=== PATIENT | female | born 1985 | race Caucasian/White ===

== ENCOUNTER 2020-02-28 17:39 | Outpatient (REF) | payer OTHER, SELFPAY | END 2020-02-28 17:40 | disposition home or self-care (01) | LOC: HO.LAB 17:39 | PROVIDERS: Visit Provider Internal Medicine | DX: Z20.828 Contact with and (suspected) exposure to other viral communicable diseases (principal) | CPT/HCPCS: C9803; U0003 ==

== ENCOUNTER 2022-06-09 09:24 | Emergency (ER) | payer OTHER, SELFPAY ==
[2022-06-09 09:25] VITALS: BP 126/68; PULSE 100; RESP 18; TEMP 36.8; O2SAT 100; BMI 34.7
--- OUTSIDE RECORDS SUMMARY | 2022-06-09 09:42 | XMS_ITS | Continuity of Care Document ---
Author Name Unknown Organization [facility] Infect[facility] Disease Address [address] [place] [address]- Care Team Providers Care Line Installer Repairer Name Role Phone Marco Crocker MD Primary Care Physician Encounter [facility] Date(s): 05/10/19 - 07/23/19 [facility] [address] [place] [address] [facility] Attending Physician: Javon Velasquez MD Admitting Physician: Javon Velasquez MD Referring Physician: Marco Crocker MD Allergies, Adverse Reactions, Alerts Substance Reaction Severity Status NKA Active Immunizations Given and Recorded Vaccine Date Status Refusal Reason influenza virus vaccine, inactivated 1 04/27/19 Gi yen tetanus/diphtheria/pertussis, acel(Tdap) 02/14/16 Given tetanus/diphtheria/pertussis, acel(Tdap) 2 09/05/10 Given 1Result Comment: patient handled procedure well with no complaints. DEPUTY SHERIFF CHIEF ND: [id number] 2Admin Note: VIS: 02/01/2008 Medications oral contraceptive oral contraceptive, Refills 0, Maintenance, 03/18/18 14:19:06 EST, Compound Start Date: 03/18/18 Status: Ordered Suboxone 8 mg-2 mg sublingual film 1 film, Sublingual, Daily, dissolve under the tongue, 0 Refills, Maintenance, 04/27/19 15:34:00 EST, Film Start Date: 04/27/19 Status: Ordered Problem List Condition Effective Dates Status Health Status Inform ant Pain in the abdomen(Confirmed) Active ADHD - Attention deficit dis order with hyperactivity(Confirmed) Active Anxiety depression(Confirmed) Active LGSIL on Pap smear of cervix(Confirmed) , 2015 Active Chlamydia(Confirmed) Active Chronic hepatitis C(Confirmed) Active Cocaine use(Confirmed) Active Opiate dependence, continuous(Confirmed) Active Dental abscess(Confirmed) 04/26/12 Active Drug abuse NOS(Confirmed) 3 02/02/12 Active 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 Cotesting Feb 2019. Message sent to [facility]. 2pap 01/26/18 LGSIL/+HPV; colpo, ECC, bx x1 3History of substance abuse and is currently living in [place] [facility] [place]. Social History Social History Type Response Smoking Status 5-9 cigarettes (betw een 1/4 to 1/2 pack)/day in last 30 days entered on: 04/27/19 Sex
--- OUTSIDE RECORDS SUMMARY | 2022-06-09 09:42 | XMS_ITS | Continuity of Care Document ---
Author Name Unknown Organization [facility] Infectious Disease Address [address] [place] [address]- Care Team Providers Care Client Technical Professional Name Role Phone Obi FAJARDO, Marco Primary Care Physician Encounter [facility] Date(s): 07/04/19 - 08/03/19 [facility] Disease [address] [place] [address]- [facility] Attending Physician: Sofia Olvera Admitting Physician: AdmSofia clark Referring Physician: AdmtrSofia Allergies, Adverse Reactions, Alerts Substance Reaction Severity Status NKA Active Immunizations Given and Recorded Vaccine Date Status Refusal Reason influenza virus vaccine, inactivated 1 04/27/19 Gi yen tetanus/diphtheria/pertussis, acel(Tdap) 02/14/16 Given tetanus/diphtheria/pertussis, acel(Tdap) 2 09/05/10 Given 1Result Comment: patient handled procedure well with no complaints. HAMPER MAKER ND: [id number] 2Admin Note: VIS: 02/01/2008 Medications oral contraceptive [...] 1. Cotesting Feb 2019. Message sent to [facility]. 2pap 01/26/18 LGSIL/+HPV; colpo, ECC, bx x1 3History of substance abuse and is currently living in [place] [facility] [place]. Social History Social History Type Response Smoking Status 5-9 cigarettes (betw een 1/4 to 1/2 pack)/day in last 30 days entered on: 04/27/19 Sex
--- OUTSIDE RECORDS SUMMARY | 2022-06-09 09:42 | XMS_ITS | Continuity of Care Document ---
Author Name Unknown Organization [facility] Address [address] [place] [address]- Care Team Providers Care Patient Assessment Coordinator Name Role Phone Obi FAJARDO, Marco Primary Care Physician Encounter [facility] Date(s): 07/18/19 - 08/17/19 [facility] [address] [place] [address]- [facility] Attending Physician: Sofia Olvera Admitting Physician: Sofia Olvera Referring Physician: AdmSofia clark Allergies, Adverse Reactions, Alerts Substance Reaction Severity Status NKA Active Immunizations Given and Recorded Vaccine Date Status Refusal Reason influenza virus vaccine, inactivated 1 04/27/19 Gi yen tetanus/diphtheria/pertussis, acel(Tdap) 02/14/16 Given tetanus/diphtheria/pertussis, acel(Tdap) 2 09/05/10 Given 1Result Comment: patient handled procedure well with no complaints. DERRICK BOAT LEVERMAN [facility]: [id number] 2Admin Note: VIS: 02/01/2008 Medications oral contraceptive [...] 1. Cotesting Feb 2019. Message sent to [facility]. 2pap 01/26/18 LGSIL/+HPV; colpo, ECC, bx x1 3History of substance abuse and is currently living in [place] [facility] [place]. Social History Social History Type Response Smoking Status 5-9 cigarettes (betw een 1/4 to 1/2 pack)/day in last 30 days entered on: 04/27/19 Sex
--- OUTSIDE RECORDS SUMMARY | 2022-06-09 09:42 | XMS_ITS | Continuity of Care Document ---
Author Name Unknown Organization [facility] Address [address] [place] [address]- Care Team Providers Care Blood Bank Calendar Control Clerk Name Role Phone Marco Crocker MD Primary Care Physician Encounter [facility] Date(s): 06/18/21 - 06/25/21 [facility] [address] [place] [address]- Encounter Diagnosis Physical exam(Discharge Diagnosis) - 06/18/21 Anxiety depression(Discharge Diagnosis) - 06/18/21 Drug abuse NOS(Discharge Diagnosis) - 06/18/21 Attending Physician: Briseida PRUNE WASHER, Sofia Allergies, Adverse Reactions, Alerts No Known Allergies Immunizations Given and Recorded Vaccine Date Status Refusal Reason SARS-CoV-2 (COVID-19) mRNA-3928 vaccine 06/17/21 R ecorded tetanus/diphtheria/pertussis, acel(Tdap) 03/04/21 Recorded tetanus/diphtheria/pertussis, acel(Tdap) 02/14/16 Given tetanus/diphtheria/pertussis, acel(Tdap) 1 09/05/10 Given Human Papillomavirus Vaccine 02/21/20 Recorded Human Papillomavirus Vaccine 07/02/07 Recorded influenza virus vaccine, inactivated 2 04/27/19 Gi yen tetanus-diphtheria toxoids (Td) 07/07/01 Recorded hepatitis B adult vaccine 07/07/01 Recorded 1Admin Note: VIS: 02/01/2008 2Result Comment: patient handled procedure well with no complaints. [place]: [id number] Medications acetaminophen 325 mg oral tablet 650 mg, By Mouth, Every 4 hours, PRN, (1-3), may give 325mg per patient preference and re-dose [id number] within 4 hours, if needed. Patient should only receive a total of 650mg of Acetaminophen every 4 hours., Refills 0, Maintenance, Pain , Mild, 0... Start Date: 04/09/21 Status: Ordered Docusate Sodium Capsule 100 mg, 1, capsule, By Mouth, 2 times a day, PRN, Refills 0, Maintenance, Constipation, 04/09/21 9:50:00 EST, Partial fill upon patient request if the prescription is for a schedule II opioid drug. Start Date: 04/09/21 Status: Ordered ibuprofen 800 mg oral tablet 800 mg, 1, tablet, By Mouth, Every 8 hours, PRN, (4-6), may give 400mg per patient preference and re-dose with 400mg within 8 hours if needed. Patient should only receive a total of 800mg of Ibuprofen every 8 hours., Refills 0, Maintenance, Pain , M... 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 Cotesting Feb 2019. Message sent to [facility]. 2pap 01/26/18 LGSIL/+HPV; colpo, ECC, bx x1 3History of substance abuse and is currently living in [place] [facility] [place]. Diagnosis Diagnosis Type Effective Dates Health Status Clinical Service Informant Physical exam Discharge Diagnosis 06/18/21 Anxiety depression Discharge Diagnosis 06/18/21 Drug abuse NOS Discharge Diagnosis 06/18/21 Vital Signs Most recent to oldest [Reference Range]: 1 2 Height 157 cm (06/18/21 10:37 AM) 157 cm (06/18/21 10:04 AM) Weight 80.7 kg (06/18/21 10:04 AM) Oxygen Saturation [94-100 %] 99 % (06/18/21 10:04 AM) Pulse Rate [55-90 bpm] 87 bpm (06/18/21 10:04 AM) Body Mass Index [18.5-24.99] 32.74 *>HHI* (06/18/21 10:04 AM) Blood Pressure [90-138/55-84 mm Hg] 100/ 70mm Hg (06/18/21 10:37 AM) Mode of Delivery (Oxygen) Room air (06/18/21 10:04 AM) Blood pressure sites Arm, left (06/18/21 10:37 AM) Arm, left (06/18/21 10:04 AM) Weight Obtained Via Standing scale (06/18/21 10:04 AM) Social History Social History Type Response Smoking Status 5-9 cigarettes (betw een 1/4 to 1/2 pack)/day in last 30 days entered on: 04/27/19 Sex
--- OUTSIDE RECORDS SUMMARY | 2022-06-09 09:42 | XMS_ITS | Continuity of Care Document ---
Author Name Unknown Organization [facility] ter Address [address] [place] [address]- Care Team Providers Care Pit Crew Support Worker Name Role Phone Obi FAJARDO, Marco Primary Care Physician [place] [facility] [place](s[place] 04/07/21 - 04/09/[address] [address] Discharge Disposition: A-D/C Home Attending Physician: Oskar Etienne MD Admitting Physician: Oskar Etienne MD Referring Physician: Oskar Etienne MD Allergies, Adverse Reactions, Alerts No Known Allergies Immunizations Given and Recorded Vaccine Date Status Refusal Reason influenza virus vaccine, inactivated 1 04/27/19 Gi yen tetanus/diphtheria/pertussis, acel(Tdap) 02/14/16 Given tetanus/diphtheria/pertussis, acel(Tdap) 2 09/05/10 Given 1Result Comment: patient handled procedure well with no complaints. PERMIT COORDINATOR [facility]: [id number] 2Admin Note: VIS: 02/01/2008 Medications acetaminophen 325 mg oral tablet 650 mg, By Mouth, Every 4 hours, PRN, (1-3), may give 325mg per patient preference and re-dose [id number] within 4 hours, if needed. Patient should [...] 1. Cotesting Feb 2019. Message sent to [facility]. 2pap 01/26/18 LGSIL/+HPV; colpo, ECC, bx x1 3History of substance abuse and is currently living in [place] [facility]. Vital Signs Most recent to oldest [Reference Range]: 1 2 3 Height 157 cm (04/09/21 8:48 AM) 157 cm (04/08/21 11:06 PM) 157 cm (04/08/21 9:33 AM) Weight 81 kg (04/07/21 4:17 AM) Oxygen Saturation [94-100 %] 98 % (04/08/21 3:35 PM) 98 % (04/08/21 9:33 AM) 100 % (04/07/21 6:45 AM) Pulse Rate [55-90 bpm] 61 bpm (04/09/21 8:48 AM) 110 bpm *H* (04/08/21 11:06 PM) 67 bpm (04/08/21 3:35 PM) Body Mass Index [18.5-24.99] 32.86 *>HHI* (04/07/21 4:17 AM) Blood Pressure [90-138/55-84 mm Hg] 120/74mm Hg (04/09/21 8:48 AM) 131/85mm Hg (04/08/21 3:35 PM) 119/74mm Hg (04/08/21 9:33 AM) Respiratory Rate [16-30 br/min] 18 br/min (04/09/21 8:48 AM) 42 br/min *H* (04/08/21 11:06 PM) 20 br/min (04/08/21 3:35 PM) Temperature [96.8-100.4 DegF] 98.7 DegF (04/09/21 8:48 AM) 98.2 DegF (04/08/21 11:06 PM) 98.2 DegF (04/08/21 3:35 PM) Mode of Delivery (Oxygen) Room air (04/08/21 3:35 PM) Room air (04/08/21 9:33 AM) Room air (04/07/21 4:17 AM) Blood pressure sites Arm, right (04/08/21 3:35 PM) Arm, right (04/08/21 9:33 AM) Arm, right (04/08/21 12:00 AM) Temperature Route Oral (04/09/21 8:48 AM) Oral (04/08/21 11:06 PM) Oral (04/08/21 3:35 PM) Dry Weight 81 kg (04/07/21 4:17 AM) Social History Social History Type Response Smoking Status 5-9 cigarettes (betw een 1/4 to 1/2 pack)/day in last 30 days entered on: 04/27/19 Sex
--- OUTSIDE RECORDS SUMMARY | 2022-06-09 09:43 | XMS_ITS | Continuity of Care Document ---
Author Name Unknown Organization [facility] Address [address] [place] [address]- Care Team Providers Care Mixer Operator Name Role Phone Obi [facility]ARD[facility], [facility] Primary Care Physician En[facility] Date(s): 03/27/21 - 04/26/[facility] [address] [place] [id number] Attending Physician: Sofia Olvera Admitting Physician: Admtr, Ar8 Referring Physician: Admtr, Ar8 Allergies, Adverse Reactions, Alerts No Known Allergies Immunizations Given and Recorded Vaccine Date Status Refusal Reason influenza virus vaccine, inactivated 1 04/27/19 Gi yen tetanus/diphtheria/pertussis, acel(Tdap) 02/14/16 Given tetanus/diphtheria/pertussis, acel(Tdap) 2 09/05/10 Given 1Result Comment: patient handled procedure well with no complaints. [place] [place]: [id number] 2Admin Note: VIS: 02/01/2008 Medications acetaminophen 325 mg oral tablet 650 mg, By Mouth, Every 4 hours, PRN, (1-3), may give 325mg per patient preference and re-dose [id number] within 4 hours, if needed. Patient should [...] 1. Cotesting Feb 2019. Message sent to [facility]. 2pap 01/26/18 LGSIL/+HPV; colpo, ECC, bx x1 3History of substance abuse and is currently living in [place] [facility] [place]. Social History Social History Type Response Smoking Status 5-9 cigarettes (betw een 1/4 to 1/2 pack)/day in last 30 days entered on: 04/27/19 Sex
--- OUTSIDE RECORDS SUMMARY | 2022-06-09 09:43 | XMS_ITS | Continuity of Care Document ---
Author Name Unknown Organization [facility] Address [address] [place] [address]- Care Team Providers Care Manager Global Communications Name Role Phone Marco Crocker MD Primary Care Physician [phone] Encounter [facility] [id number] Date(s): 04/27/19 - 05/04/19 [facility] [address] [place] [address]- [facility] Encounter Diagnosis Hepatitis C, chronic(Discharge Diagnosis) - 04/27/19 Generalized abdominal pain(Discharge Diagnosis) - 04/27/19 Opiate dependence(Discharge Diagnosis) - 04/27/19 Attending Physician: Marco Crocker MD Allergies, Adverse Reactions, Alerts Substance Reaction Severity Status NKA Active Immunizations Given and Recorded Vaccine Date Status Refusal Reason influenza virus vaccine, inactivated 1 04/27/19 Gi yen tetanus/diphtheria/pertussis, acel(Tdap) 02/14/16 Given tetanus/diphtheria/pertussis, acel(Tdap) 2 09/05/10 Given 1Result Comment: patient handled procedure well with no complaints. CORE WINDER MACHINE OPERATOR ND: [id number] 2Admin Note: VIS: 02/01/2008 Medications docusate-senna 50 mg-187 mg oral tablet 2 tablet, By Mouth, Daily at bedtime, # 90 tablet, 0 Refills, Acute 05/26/19 15:49:00 EDT, 04/27/2014:48:00 EST, Tablet, [id number], 2 tablet By Mouth Daily at bedtime, 157.2, cm, 04/27/19 15:30:00 EST, Height, 86.5, kg, 06/22/18 20:13:00 EDT... 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 Cotesting Feb 2019. Message sent to [facility]. 2pap 01/26/18 LGSIL/+HPV; colpo, ECC, bx x1 3History of substance abuse and is currently living in [place] [facility] [place]. Diagnosis Diagnosis Type Effective Dates Health Status Clinical Service Informant Hepatitis C, chronic Discharge Diagnosis 04/27/19 Generalized abdominal pain Discharge Diagnosis 04/27/19 Opiate dependence Discharge Diagnosis 04/27/19 Vital Signs Most recent to oldest [Reference Range]: 1 Height 157.2 cm (04/27/19 3:30 PM) Weight 73.6 kg (04/27/19 3:30 PM) Oxygen Saturation [94-100 %] 97 % (04/27/19 3:30 PM) Pulse Rate [55-90 bpm] 66 bpm (04/27/19 3:30 PM) Body Mass Index [18.5-24.99] 29.78 *H* (04/27/19 3:30 PM) Blood Pressure [90-138/55-84 mm Hg] 96/5 6mm Hg (04/27/19 3:30 PM) Temperature [96.8-100.4 DegF] 97.8 DegF (04/27/19 3:30 PM) Mode of Delivery (Oxygen) Room air (04/27/19 3:30 PM) Blood pressure sites Arm, left (04/27/19 3:30 PM) Temperature Route Oral (04/27/19 3:30 PM) Weight Obtained Via Standing scale (04/27/19 3:30 PM) Social History Social History Type Response Smoking Status 5-9 cigarettes (betw een 1/4 to 1/2 pack)/day in last 30 days entered on: 04/27/19 Sex
--- OUTSIDE RECORDS SUMMARY | 2022-06-09 09:43 | XMS_ITS | Continuity of Care Document ---
Author Name Unknown Organization [facility] ter Address [address] [place] [address]- Care Team Providers Care Process Development Engineer Name Role Phone Marco Crocker MD Primary Care Physician Encounter [facility] [place] Date(s): 06/17/21 - 07/20/[address] [address]- Attending Physician: Madison Matias NP Admitting Physician: Madison Matias NP Referring Physician: Madison Matias NP Allergies, Adverse Reactions, Alerts No Known Allergies Immunizations Given and Recorded Vaccine Date Status Refusal Reason SARS-CoV-2 (COVID-19) mRNA-0731 vaccine 06/17/21 R ecorded tetanus/diphtheria/pertussis, acel(Tdap) 03/04/21 Recorded tetanus/diphtheria/pertussis, acel(Tdap) 02/14/16 Given tetanus/diphtheria/pertussis, acel(Tdap) 1 09/05/10 Given Human Papillomavirus Vaccine 02/21/20 Recorded Human Papillomavirus Vaccine 07/02/07 Recorded influenza virus vaccine, inactivated 2 04/27/19 Gi yen tetanus-diphtheria toxoids (Td) 07/07/01 Recorded hepatitis B adult vaccine 07/07/01 Recorded 1Admin Note: VIS: 02/01/2008 2Result Comment: patient handled procedure well with no complaints. BAKERY TEAM [place]BER [place]: [id number] Medications acetaminophen 325 mg oral tablet 650 mg, By Mouth, Every 4 hours, PRN, (1-3), may give 325mg per patient preference and re-dose [id number] within 4 hours, if needed. Patient should [...] 1. Cotesting Feb 2019. Message sent to [facility]. 2pap 01/26/18 LGSIL/+HPV; colpo, ECC, bx x1 3History of substance abuse and is currently living in [place] [facility] [place]. Social History Social History Type Response Smoking Status 5-9 cigarettes (betw een 1/4 to 1/2 pack)/day in last 30 days entered on: 04/27/19 Sex
--- OUTSIDE RECORDS SUMMARY | 2022-06-09 09:43 | XMS_ITS | Continuity of Care Document ---
Author Name Unknown Organization [facility] ter Address [address] [place] [address]- Care Team Providers Care Matcher Operator Name Role Phone Marco Crocker MD Primary Care Physician [phone] Encounter [facility] Date(s): 06/26/20 - 06/26/[address] [address]- Encounter Diagnosis Suicidal ideation(Final) - 06/26/20 Agitation(Final) - 06/26/20 Discharge Disposition: A-D/C Home Attending Physician: Leena Aguiar MD Admitting Physician: Leena Aguiar MD Referring Physician: Not on Staff, Referring MD Allergies, Adverse Reactions, Alerts Substance Reaction Severity Status NKA Active Immunizations Given and Recorded Vaccine Date Status Refusal Reason influenza virus vaccine, inactivated 1 04/27/19 Gi yen tetanus/diphtheria/pertussis, acel(Tdap) 02/14/16 Given tetanus/diphtheria/pertussis, acel(Tdap) 2 09/05/10 Given 1Result Comment: patient handled procedure well with no complaints. [place]: [id number] 2Admin Note: VIS: 02/01/2008 Medications omeprazole 20 mg oral delayed release tablet 1 tablet = 20 mg, By Mouth, Daily, # 14 tablet, 0 Refills, Maintenance, 03/19/20 15:57:00 EST, CR Tablet, [id number], Partial fill upon patient request if the prescription is for a schedule II opioid drug., 157.5, cm, 03/19/20 12:46:00 EST, He... Start Date: 03/19/20 Stop Date: 04/02/20 Status: Ordered oral contraceptive oral contraceptive, See Instructions, Refills 0, Maintenance, BC patch, changes once a week, 03/18/18 14:19:06 EST, Compound Start Date: 03/18/18 Status: Ordered Problem List Condition Effective Dates [...] substance abuse and is currently living in [place] [facility] [place]. Vital Signs Most recent to oldest [Reference Range]: 1 2 3 Oxygen Saturation [94-100 %] 98 % (06/26/20 11:47 AM) 98 % (06/26/20 9:07 AM) 97 % (06/26/20 3:29 AM) Pulse Rate [55-90 bpm] 78 bpm (06/26/20 11:47 AM) 62 bpm (06/26/20 9:07 AM) 66 bpm (06/26/20 3:29 AM) Blood Pressure [90-138/55-84 mm Hg] 98/80mm Hg (06/26/20 11:47 AM) 101/87mm Hg (06/26/20 9:07 AM) 112/54mm Hg (06/26/20 3:29 AM) Respiratory Rate [16-30 br/min] 16 br/min (06/26/20 11:47 AM) 16 br/min (06/26/20 9:07 AM) 20 br/min (06/26/20 3:29 AM) Temperature [96.8-100.4 DegF] 98.1 DegF (06/26/20 9:07 AM) 97.7 DegF (06/26/20 3:29 AM) 97.8 DegF (06/26/20 2:15 AM) Mode of Delivery (Oxygen) Room air (06/26/20 9:07 AM) Room air (06/26/20 3:29 AM) Room air (06/26/20 2:15 AM) Blood pressure sites Arm, right (06/26/20 3:29 AM) Arm, left (06/26/20 2:15 AM) Temperature Route Oral (06/26/20 9:07 AM) Oral (06/26/20 3:29 AM) Oral (06/26/20 2:15 AM) Social History Social History Type Response Smoking Status 5-9 cigarettes (betw een 1/4 to 1/2 pack)/day in last 30 days entered on: 04/27/19 Sex
--- OUTSIDE RECORDS SUMMARY | 2022-06-09 09:43 | XMS_ITS | Continuity of Care Document ---
Author Name Unknown Organization [facility] Address [address] [place] [address]- Care Team Providers Care Power Plant Supervisor Name Role Phone Marco Crocker MD Primary Care Physician Encounter [facility] Date(s): 07/04/19 - 07/11/19 [facility] [address] [place] [id number]- [facility] Attending Physician: Javon Velasquez MD Referring Physician: Marco Crocker MD Allergies, Adverse Reactions, Alerts Substance Reaction Severity Status NKA Active Immunizations Given and Recorded Vaccine Date Status Refusal Reason influenza virus vaccine, inactivated 1 04/27/19 Gi yen tetanus/diphtheria/pertussis, acel(Tdap) 02/14/16 Given tetanus/diphtheria/pertussis, acel(Tdap) 2 09/05/10 Given 1Result Comment: patient handled procedure well with no complaints. 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 Cotesting Feb 2019. Message sent to [facility]. 2pap 01/26/18 LGSIL/+HPV; colpo, ECC, bx x1 3History of substance abuse and is currently living in [place] [facility]. Social History Social History Type Response Smoking Status 5-9 cigarettes (betw een 1/4 to 1/2 pack)/day in last 30 days entered on: 04/27/19 Sex
--- OUTSIDE RECORDS SUMMARY | 2022-06-09 09:43 | XMS_ITS | Continuity of Care Document ---
Author Name Unknown Organization [facility] Address [address] [place] [id number]- Care Team Providers Care Patient Care Name Role Phone Obi FAJARDO, [facility] Primary Care Physician En[place] [facility] Date(s): 03/13/21 - 04/26/21 [facility] [address] [place] [id number] Attending Physician: Dom Miramontes MD Admitting Physician: Dom Miramontes MD Referring Physician: Katie Bundy CNM Allergies, Adverse Reactions, Alerts No Known Allergies Immunizations Given and Recorded Vaccine Date Status Refusal Reason influenza virus vaccine, inactivated 1 04/27/19 Gi yen tetanus/diphtheria/pertussis, acel(Tdap) 02/14/16 Given tetanus/diphtheria/pertussis, acel(Tdap) 2 09/05/10 Given 1Result Comment: patient handled procedure well with no complaints. [place]ER [place]: [id number] 2Admin Note: VIS: 02/01/2008 Medications acetaminophen 325 mg oral tablet 650 mg, By Mouth, Every 4 hours, PRN, (1-3), may give 325mg per patient preference and re-dose [id number] within 4 hours, if needed. Patient should [...] 1. Cotesting Feb 2019. Message sent to [facility]. 2pap 01/26/18 LGSIL/+HPV; colpo, ECC, bx x1 3History of substance abuse and is currently living in [place] [facility] [place]. Social History Social History Type Response Smoking Status 5-9 cigarettes (betw een 1/4 to 1/2 pack)/day in last 30 days entered on: 04/27/19 Sex
--- OUTSIDE RECORDS SUMMARY | 2022-06-09 09:43 | XMS_ITS | Continuity of Care Document ---
Author Name Unknown Organization [facility] ter Address [address] [place] [address]- Care Team Providers Care Supervisor Customer Complaint Service Name Role Phone Marco Crocker MD Primary Care Physician [phone] Encounter [facility] Date(s): 04/04/21 - 04/15/[address] [address]- Attending Physician: Zulay Choudhury DO Referring Physician: Katie Bundy CNM Allergies, Adverse Reactions, Alerts No Known Allergies Immunizations Given and Recorded Vaccine Date Status Refusal Reason influenza virus vaccine, inactivated 1 04/27/19 Gi yen tetanus/diphtheria/pertussis, acel(Tdap) 02/14/16 Given tetanus/diphtheria/pertussis, acel(Tdap) 2 09/05/10 Given 1Result Comment: patient handled procedure well with no complaints. ORDER ADMINISTRATOR ND: [id number] 2Admin Note: VIS: 02/01/2008 Medications acetaminophen 325 mg oral tablet 650 mg, By Mouth, Every 4 hours, PRN, (1-3), may give 325mg per patient preference and re-dose [id number] within 4 hours, if needed. Patient should [...] 1. Cotesting Feb 2019. Message sent to [facility]. 2pap 01/26/18 LGSIL/+HPV; colpo, ECC, bx x1 3History of substance abuse and is currently living in [place] [facility] [place]. Social History Social History Type Response Smoking Status 5-9 cigarettes (betw een 1/4 to 1/2 pack)/day in last 30 days entered on: 04/27/19 Sex
--- OUTSIDE RECORDS SUMMARY | 2022-06-09 09:43 | XMS_ITS | Continuity of Care Document ---
Author Name Unknown Organization [facility] ter Address [address] [place] [address]- Care Team Providers Care Production Team Manager Name Role Phone Marco Crocker MD Primary Care Physician Encounter [facility] Date(s): 04/27/19 - 04/27/[address] [address]- [facility] Attending Physician: Marco Crocker MD Allergies, Adverse Reactions, Alerts Substance Reaction Severity Status NKA Active Immunizations Given and Recorded Vaccine Date Status Refusal Reason influenza virus vaccine, inactivated 1 04/27/19 Gi yen tetanus/diphtheria/pertussis, acel(Tdap) 02/14/16 Given tetanus/diphtheria/pertussis, acel(Tdap) 2 09/05/10 Given 1Result Comment: patient handled procedure well with no complaints. COLLEGE OR [place] DE[place]MENT HEAD [place]: [id number] 2Admin Note: VIS: 02/01/2008 Medications docusate-senna 50 mg-187 mg oral tablet 2 tablet, By Mouth, Daily at bedtime, # 90 tablet, 0 Refills, Acute 05/26/19 15:49:00 EDT, 04/27/2014:48:00 EST, Tablet, [id number], 2 tablet By Mouth Daily at bedtime, [...] 1. Cotesting Feb 2019. Message sent to [facility]. 2pap 01/26/18 LGSIL/+HPV; colpo, ECC, bx x1 3History of substance abuse and is currently living in [place] substance abuse [facility]. Social History Social History Type Response Smoking Status 5-9 cigarettes (betw een 1/4 to 1/2 pack)/day in last 30 days entered on: 04/27/19 Sex
--- OUTSIDE RECORDS SUMMARY | 2022-06-09 09:43 | XMS_ITS | Continuity of Care Document ---
Author Name Unknown Organization [facility] ter Address [address] [place] [address]- Care Team Providers Care Fur Blowing Machine Attendant Name Role Phone Marco Crocker MD Primary Care Physician Encounter [facility] [place] Date(s): 03/11/21 - 04/13/[address] [address]- Attending Physician: Madison Matias NP Admitting Physician: Madison Matias NP Referring Physician: Madison Matias NP Allergies, Adverse Reactions, Alerts No Known Allergies Immunizations Given and Recorded Vaccine Date Status Refusal Reason influenza virus vaccine, inactivated 1 04/27/19 Gi yen tetanus/diphtheria/pertussis, acel(Tdap) 02/14/16 Given tetanus/diphtheria/pertussis, acel(Tdap) 2 09/05/10 Given 1Result Comment: patient handled procedure well with no complaints. COSMETIC ASSEMBLER [facility]: [id number] 2Admin Note: VIS: 02/01/2008 Medications acetaminophen 325 mg oral tablet 650 mg, By Mouth, Every 4 hours, PRN, (1-3), may give 325mg per patient preference and re-dose [id number] within 4 hours, if needed. Patient should [...] 1. Cotesting Feb 2019. Message sent to [facility]. 2pap 01/26/18 LGSIL/+HPV; colpo, ECC, bx x1 3History of substance abuse and is currently living in [place] [facility] [place]. Social History Social History Type Response Smoking Status 5-9 cigarettes (betw een 1/4 to 1/2 pack)/day in last 30 days entered on: 04/27/19 Sex
--- NOTE | 2022-06-09 09:44 | ED.GENADULT ---
HPI - General Adult General Chief complaint: Upper Respiratory Symptoms Stated complaint: cough ear pain running nose Time Seen by Provider: 06/09/22 09:32 Source: patient Mode of arrival: ambulatory Limitations: no limitations History of Present Illness HPI narrative: Patient is a 37 year old assigned female at with a history of current 16 weeks presenting to the emergency department today with sinus congestion and bilateral ear pain. Patient states that for the last 2 weeks, she has had sinus congestion and bilateral ear pain. Patient denies any dizziness, lightheadedness, abdominal pain, nausea, vomiting, fever, chills, blurry vision, double vision, loss of vision, chest pain, difficulty breathing, shortness of breath, back pain, night sweats, pain with urination, increased urinary frequency, increased urinary urgency, blood in her urine or stool, syncope or a near syncopal episode, recent trauma or falls, bowel incontinence, bladder incontinence, bowel retention, bladder retention, or any other complaints at this time. Onset (ago): week(s) (2) Severity: mild Severity scale (1-10): 2 Quality: aching and dull Pain Consistency: constant Relieving factors: none Exacerbating factors: none Associated symptoms: denies other symptoms Treatments prior to arrival: none Related Data Previous Rx's Medication Instructions Recorded amoxicillin 875 mg-potassium 1 tab PO BID 7 days #14 tabs 06/09/22 clavulanate 125 mg tablet Allergies Allergy/AdvReac Type Severity Reaction Status Date / Time SEAFOOD AdvReac Unknown SICK Uncoded 12/01/19 18:47 Review of Systems Constitutional: Constitutional: Reports no additional constitutional complaints, Denies chills, Denies fever(s) and Denies night sweats Eyes: Eyes: Reports no additional eye complaints, Denies blurry vision, Denies change in vision, Denies diplopia, Denies eye discharge, Denies loss of vision and Denies eye pain ENT: Denies dizziness and Reports sinus pressure Comments: bilateral ear pain Cardiovascular: Cardiovascular: Reports no additional cardiovascular complaints, Denies chest pain, Denies lightheadedness, Denies Loss of Consciousness and Denies dyspnea Respiratory: Respiratory: Reports no additional respiratory complaints and Denies dyspnea Gastrointestinal: Gastrointestinal: Reports no additional gastrointestinal complaints, Denies abdominal pain, Denies melena, Denies hematochezia, Denies change in bowel habits and Denies change in stool character Genitourinary: Genitourinary: Denies hematuria, Denies urinary frequency, Denies dysuria, Denies urinary incontinence, Denies urinary hesitancy and Denies urinary urgency Musculoskeletal: Musculoskeletal: Reports no additional musculoskeletal complaints, Denies numbness and Denies tingling Neurologic: Denies dizziness, Denies loss of vision, Denies numbness and Denies tingling Psychiatric: Psychiatric: Reports no additional psychiatric complaints Endocrine: Endocrine: Reports no additional endocrine complaints Hematologic/Lymphatic: Hematologic/Lymphatic: Reports no additional hematologic/lymphatic complaints Allergic/Immunologic: Allergic/Immunologic: Reports no additional allergic/immunologic complaints [facility] Past Medical History Attestation statement: The following information was validated with the patient. Source: old records reviewed and nursing notes reviewed Social History Social History Alcohol intake: former Smoked in Last 30 Days: Yes Use of substances other than those prescribed or required for medical reasons: Yes Substance Use Type: Marijuana Advance Directives: No Advance Directives Information Provided: Yes Patient : Yes Physical Exam ED Vital Signs: Vital Signs - 24 hr 06/09/22 09:25 Temperature 98.3 F Pulse Rate 100 Respiratory Rate 18 Blood Pressure 126/68 Pulse Oximetry 100 Oxygen Delivery Method Room Air BMI result Body Mass Index 34.7 Const General: cooperative, no acute distress, alert and awake Nutritional Appearance: well nourished Orientation/consciousness: patient oriented x3 Limitations: no limitations [facility] Head: Yes normal to inspection and Yes atraumatic Ears: hearing grossly normal bilaterally, external ears normal and TM's normal bilaterally General nose exam: Normal external nose present, no nasal discharge noted and no epistaxis Face and sinus: Yes normal facial exam, No abrasion, No laceration and Yes sinus tenderness Mouth: Normal oral and palatal mucosa present, no drooling and no muffled voice Eyes General: appearance normal, both eyes and all related structures Periorbital: periorbital findings normal Eyelids: Yes eyelids normal Conjunctivae: conjunctivae normal Pupils: Equal, round and reactive pupils present EOM: EOMs intact bilaterally Neck Neck: Yes normal visual inspection, Yes full ROM and Yes no lymphadenopathy Chest Chest palpation & inspection: normal inspection of the chest Resp Effort & Inspection: normal respiratory effort and able to speak in complete sentences Auscultation: clear to auscultation bilaterally Cardio Rate: regular rate Rhythm: regular rhythm GI Inspection: Yes normal to inspection Palpation (GI): Soft to palpation, not firm, nontender, no guarding and not rigid Neuro General: patient oriented x3 and moves all extremities Cranial nerves: Yes Equal, round and reactive pupils present Cognition (Neuro): normal cognition Motor exam (neuro): 5/5 motor strength present throughout Sensory Exam: Normal double simultaneous stimulation for sensation Coordination: [id number] test normal Extrem General: Yes normal to inspection, Yes full ROM and Yes capillary refill normal Psych Appearance: grossly normal Mental Status: mental status grossly normal Affect: normal affect Attitude: cooperative Thought process: Normal thought process present Thought content: Normal thought content present Insight: Good insight present (Psych) Medical Decision Making Medical Decision Making MDM Narrative: Patient is a 37 year old assigned female at with a history of currently being 16 weeks presenting to the emergency department today with sinus congestion and bilateral ear pain. Patient's physical exam showed sinus tenderness but was otherwise unremarkable. Patient's COVID/RSV/Influenza test was negative. I explained my physical exam findings as well as all test results to the patient. I answered all questions asked by the patient. I stressed the importance of the patient taking her medication as prescribed. I stressed the importance of the patient following up with her primary care provider. I stressed the importance of the patient returning to the emergency department immediately if her symptoms were to worsen or if she were to develop any dizziness, shortness of breath, difficulty breathing, chest pain, blurry vision, loss of vision, nausea, vomiting, abdominal pain, fever, chills, back pain, or any other complaints. Patient verbalized agreement and understanding with this treatment plan and discharge. Differential Diagnosis Differential Diagnoses: The differential diagnosis associated with the presentation includes sinusitis Lab Data [facility] Lab Attestation statement: I reviewed the patient's lab results. Labs: Lab Results 06/09/22 Range/Units 09:31 Influenza Type A (PCR) NEGATIVE (Negative) Influenza Type B (PCR) NEGATIVE (Negative) RSV RNA Qual (PCR) NEGATIVE (Negative) SARS-CoV-2 RNA (RT-PCR) NEGATIVE (Negative) Discharge Plan Discharge Clinical Impression: Sinusitis Patient Disposition: Home, Self-Care Instructions: Sinusitis (ED) Additional Instructions: Follow up with your primary care provider. Return to the emergency department immediately if your symptoms worsen or if you develop any dizziness, shortness of breath, difficulty breathing, chest pain, blurry vision, loss of vision, nausea, vomiting, abdominal pain, fever, chills, back pain, or any other complaints. Prescriptions: New amoxicillin-pot clavulanate 875-125 mg tablet 1 tab PO BID 7 Days Qty: 14 0RF Referrals: [facility] Family Medicine [Provider Group] (Call to establish and follow up with a primary care provider. If you already have a primary care provider, please follow up with them.) [facility] [facility] Primary [facility] [Provider Group] (Call to establish and follow up with a primary care provider. If you already have a primary care provider, please follow up with them.) [facility] [place] Primary Care[facility] [Provider Group] (Call to establish and follow up with a primary care provider. If you already have a primary care provider, please follow up with them.) Stand Alone Forms: Work/School Release Interventions: ED Discharge Assessment Last Done: 06/09/22 11:35 Discharge Date/Time: 06/09/22 11:36 Print Language: Tamazight
[2022-06-09 10:23] LABS: Influenza A PCR NEGATIVE (Negative); Influenza B PCR NEGATIVE (Negative); Resp Syncy Virus RNA Qual PCR NEGATIVE (Negative); SARS COV2 PCR INHOUSE NEGATIVE (Negative)
== END 2022-06-09 11:36 | disposition home or self-care (01) ==
PROVIDERS: Emergency Provider Student in an Organized Health Care Education/Training Program
DX: J32.9 Chronic sinusitis, unspecified (principal); R05.9 Cough, unspecified; Z20.822 Contact with and (suspected) exposure to COVID-19; Z20.828 Contact with and (suspected) exposure to other viral communicable diseases
CPT/HCPCS: 0241U; 99283; 99284

== ENCOUNTER 2022-08-27 08:43 | Emergency (ER) | payer OTHER, SELFPAY ==
--- NOTE | ~2022-08-27 | US_ITS ---
EXAMINATION: Appendix ultrasound CLINICAL INFORMATION: Right-sided abdominal pain. Patient is 7 months . COMPARISON: Full previous CT of the abdomen and pelvis October 2017 TECHNIQUE: Grayscale and color imaging of the right lower quadrant. The right kidney and right ovary were also imaged. FINDINGS: The appendix is not seen by ultrasound. No fluid is seen in the right lower quadrant. The right kidney measures 12.9 x 4.8 x 6.2 cm. There are 3 small kidney stones largest measuring 3 mm in the midpole. There is mild right hydronephrosis. The visualized right proximal ureter is dilated. A right ureteral jet is seen in the bladder. The right ovary is normal-appearing. There are prominent right adnexal vessels. There is no fluid in the pelvis. US/US appendix IMPRESSION: Appendix not seen by US. Small right renal stones. Mild right hydronephrosis and visualized proximal ureteral dilatation. Right ureteral jet seen in the bladder. Normal-appearing right ovary. Prominent right adnexal vessels.
[2022-08-27 09:13] VITALS: BP 100/40; PULSE 78; RESP 16; TEMP 36.1; O2SAT 98; BMI 35.4
[2022-08-27 09:35] LABS: UPreg QC Valid YES; Urine Pregnancy POSITIVE (NEGATIVE)
[2022-08-27 09:36] LABS: Appearance Urine Clear; Color Urine Yellow; Glucose Urine UA Negative (Negative); Leukocyte Esterase Urine Negative (Negative); Nitrite Urine Negative (Negative); PH 7.5 (5.0-9.0); UMIC TRIGGER UACC YES; Urine Blood Negative (Negative); Urine Ketones Trace mg/dL (Negative); Urine Protein 30 (1+) mg/dL (Neg-Trace)
[2022-08-27 09:39] LABS: Bacteria Urine None Seen (None Seen); Hyaline Casts Urine 0-2 /LPF (0-2); RBC Urine 0-2 /HPF (0-2); Squamous Epithelial Cell Urine 0-2 /HPF (0-2); WBC Urine 0-5 /HPF (0-5)
--- NOTE | 2022-08-27 10:07 | ED.GENADULT ---
HPI - General Adult General Chief complaint: Abdominal Pain Stated complaint: R side abd pain, 7 months Time Seen by Provider: 08/27/22 10:07 Source: patient Mode of arrival: ambulatory Limitations: no limitations History of Present Illness HPI narrative: Patient is a 37 year old female 27w3d gestation with no significant past medical history presenting today with right sided abdominal pain. She does not recall any precipitating factors. She describes pain as constant, burning, achy feeling that starts at the right lower quadrant of her abdomen and radiates to her right flank and mid-lower back. She denies vaginal bleeding, dysuria, chest pain, fever or chills though admits to nocturia and nausea, which she attributes to her . She reports no other acute concerns at this time. Onset (ago): hour(s) (this morning) Location: abdomen Radiation: flank Severity: moderate Severity scale (1-10): 6 Quality: burning and constant Pain Consistency: constant Relieving factors: none Exacerbating factors: none Associated symptoms: denies other symptoms Related Data Previous Rx's Medication Instructions Recorded amoxicillin 875 mg-potassium 1 tab PO BID 7 days #14 tabs 06/09/22 clavulanate 125 mg tablet Allergies Allergy/AdvReac Type Severity Reaction Status Date / Time No Known Allergies Allergy Verified 08/27/22 09:13 Review of Systems Constitutional: Constitutional: Reports no additional constitutional complaints, Denies chills, Denies fever(s) and Denies night sweats Eyes: Eyes: Reports no additional eye complaints ENT: Denies dizziness Cardiovascular: Cardiovascular: Reports no additional cardiovascular complaints and Denies chest pain Respiratory: Respiratory: Reports no additional respiratory complaints Gastrointestinal: Gastrointestinal: Reports no additional gastrointestinal complaints, Reports abdominal pain (starts at RLQ and radiates to RUQ and right flank), Denies melena, Denies hematochezia, Denies change in bowel habits and Denies change in stool character Genitourinary: Genitourinary: Denies hematuria Comments: admits to nocturia Musculoskeletal: Musculoskeletal: Reports no additional musculoskeletal complaints, Denies numbness and Denies tingling Neurologic: Denies dizziness, Denies numbness and Denies tingling Psychiatric: Psychiatric: Reports no additional psychiatric complaints Endocrine: Endocrine: Reports no additional endocrine complaints Hematologic/Lymphatic: Hematologic/Lymphatic: Reports no additional hematologic/lymphatic complaints Allergic/Immunologic: Allergic/Immunologic: Reports no additional allergic/immunologic complaints [facility] Past Medical History Attestation statement: The following information was validated with the patient. Source: old records reviewed Social History Social History Alcohol intake: former Substance Use Type: Marijuana Physical Exam ED Vital Signs: Vital Signs - 24 hr 08/27/22 09:13 Temperature 97 F Pulse Rate 78 Respiratory Rate 16 Blood Pressure 100/40 L Pulse Oximetry 98 Oxygen Delivery Method Room Air BMI result Body Mass Index 35.4 Const General: cooperative, no acute distress, alert and awake Nutritional Appearance: well nourished Orientation/consciousness: patient oriented x3 Limitations: no limitations HENMT Head: Yes normal to inspection Eyes General: appearance normal, both eyes and all related structures Neck Neck: Yes normal visual inspection Chest Chest palpation & inspection: normal inspection of the chest Resp Effort & Inspection: normal respiratory effort and able to speak in complete sentences Auscultation: clear to auscultation bilaterally Cardio Rate: regular rate Rhythm: regular rhythm GI Inspection: Yes normal to inspection and Yes other (negative ecchymosis) Palpation (GI): Tenderness to palpation present (GI) in the LLQ (palpation of the LLQ elicits pain at the RLQ), in the RLQ and in the RUQ Auscultation: normal bowel sounds General: Yes no CVA tenderness Back/Spine/Pelvis Back: no CVA tenderness Neuro General: patient oriented x3 and moves all extremities Cognition (Neuro): normal cognition Extrem General: Yes normal to inspection and Yes full ROM Psych Appearance: grossly normal Mental Status: mental status grossly normal Affect: normal affect Attitude: cooperative Thought process: Normal thought process present Thought content: Normal thought content present Insight: Good insight present (Psych) Medical Decision Making Medical Decision Making MDM Narrative: Patient is a 37 year old assigned female at currently 27 weeks presenting to the emergency department today with right lower quadrant abdominal and flank pain. Patient's physical exam was unremarkable. heart tones normal. Patient's blood work was unremarkable. Patient's urine showed no acute process. Patient's abdominal US showed right sided kidney stones and mild hydro but could not visualize the appendix. I spoke with our OBGYN denture contour wire specialist who recommended transfer for appropriate pre-term labor monitoring. I spoke to the certified tree tapping laborer denture contour wire specialist at [facility] who agreed to transfer of the patient. I explained my physical exam findings as well as all test results to the patient. I answered all questions asked by the patient. Patient verbalized agreement and understanding with this treatment plan and transfer. Differential Diagnosis Differential Diagnoses: The differential diagnosis associated with the presentation includes pre-term labor, kidney stone Admission/Observation Consideration of admission/observation: Escalation of care including admission/observation considered Patient was transferred. Consult Healthcare Provider Management of the patient was discussed with: Tractor Sweeper Driver (spoke with OBGYN and certified club waiter/waitress as noted in the MDM portion of this chart.) Lab Data [facility] Lab Attestation statement: I reviewed the patient's lab results. Interpretation of the patient's lab results is located in the MDM portion of this chart. 08/27/22 11:05 08/27/22 11:05 Labs: Lab Results 08/27/22 08/27/22 08/27/22 Range/Units 09:26 09:26 11:05 WBC 8.5 (4.8-10.8) X10*3/uL RBC 3.49 L (4.20-5.50) X10*6/uL Hgb 11.5 L (12.0-16.0) g/dl Hct 32.8 L (37.0-47.0) % MCV 94.0 (80.0-98.0) fL MCH 33.0 (27.0-33.0) pg MCHC 35.1 H (31.0-35.0) g/dl RDW 12.5 (11.0-16.0) % Plt Count 145 L (160-400) X10*3/uL MPV 9.6 (9.4-12.3) fL Immature Gran % (Auto) 0.5 H (0.0-0.4) % Neut % (Auto) 67.7 (45-73) % Lymph % (Auto) 21.4 (20-40) % [place] % (Auto) 8.3 (2-11) % Eos % (Auto) 1.7 (0-4) % Baso % (Auto) 0.4 (0-2) % Lymph # (Auto) 1.8 (1.2-4.9) X10*3/uL [place] # (Auto) 0.7 (0.1-1.2) X10*3/uL Eos # (Auto) 0.1 (0.0-0.4) X10*3/uL Baso # (Auto) 0.0 (0.0-0.2) X10*3/uL Abs Immat Gran (auto) 0.04 H (0.00-0.03) X10*3/uL Absolute Neuts (auto) 5.7 (2.0-8.3) x10*3/uL Absolute Nucleated RBC 0.000 (0.0-0.012) X10*3/uL Nucleated RBC % (auto) 0.0 (0.0-0.2) /100WBC ESR (0-20) MM/HR Sodium (135-145) mmol/L Potassium (3.3-5.1) mmol/L Chloride (96-108) mmol/L Carbon Dioxide (22-29) mmol/L Anion Gap (12-20) BUN (9-16) mg/dL Creatinine (0.5-1.4) mg/dL Estim Creat Clear Calc Estimated GFR Random Glucose (60-115) mg/dL Calcium (8.4-10.2) mg/dL Total Bilirubin (0.0-1.0) mg/dL AST (5-31) U/L ALT (0-31) U/L Alkaline Phosphatase (39-117) U/L C-Reactive Protein (< or = 0.50) mg/dL Total Protein (6.5-8.0) g/dL Albumin (3.5-5.0) g/dL Beta HCG, Quant mIU/mL Urine Color Yellow Urine Appearance Clear Urine pH 7.5 (5.0-9.0) Ur Specific [place] 1.020 (1.005-1.025) Urine Protein 30 (1+) H (Neg-Trace) mg/dL Urine Glucose (UA) Negative (Negative) mg/dL Urine Ketones Trace (Negative) mg/dL Urine Blood Negative (Negative) Urine Nitrite Negative (Negative) Ur Leukocyte Esterase Negative (Negative) Urine RBC 0-2 (0-2) /HPF Urine WBC 0-5 (0-5) /HPF Ur Squamous Epith Cells 0-2 (0-2) /HPF Urine Bacteria None Seen (None Seen) Hyaline Casts 0-2 (0-2) /LPF Urine Test POSITIVE H (NEGATIVE) 08/27/22 08/27/22 08/27/22 Range/Units 11:05 11:05 11:05 WBC (4.8-10.8) X10*3/uL RBC (4.20-5.50) X10*6/uL Hgb (12.0-16.0) g/dl Hct (37.0-47.0) % MCV (80.0-98.0) fL MCH (27.0-33.0) pg MCHC (31.0-35.0) g/dl RDW (11.0-16.0) % Plt Count (160-400) X10*3/uL MPV (9.4-12.3) fL Immature Gran % (Auto) (0.0-0.4) % Neut % (Auto) (45-73) % Lymph % (Auto) (20-40) % [place] % (Auto) (2-11) % Eos % (Auto) (0-4) % Baso % (Auto) (0-2) % Lymph # (Auto) (1.2-4.9) X10*3/uL [place] # (Auto) (0.1-1.2) X10*3/uL Eos # (Auto) (0.0-0.4) X10*3/uL Baso # (Auto) (0.0-0.2) X10*3/uL Abs Immat Gran (auto) (0.00-0.03) X10*3/uL Absolute Neuts (auto) (2.0-8.3) x10*3/uL Absolute Nucleated RBC (0.0-0.012) X10*3/uL Nucleated RBC % (auto) (0.0-0.2) /100WBC ESR 24 H (0-20) MM/HR Sodium 137 (135-145) mmol/L Potassium 3.9 (3.3-5.1) mmol/L Chloride 111 H (96-108) mmol/L Carbon Dioxide 21 L (22-29) mmol/L Anion Gap 9 L (12-20) BUN 10 (9-16) mg/dL Creatinine 0.56 (0.5-1.4) mg/dL Estim Creat Clear Calc 144.2 Estimated GFR > 60 Random Glucose 96 (60-115) mg/dL Calcium 8.4 (8.4-10.2) mg/dL Total Bilirubin 0.4 (0.0-1.0) mg/dL AST 16 (5-31) U/L ALT 13 (0-31) U/L Alkaline Phosphatase 38 L (39-117) U/L C-Reactive Protein < 0.04 (< or = 0.50) mg/dL Total Protein 6.1 L (6.5-8.0) g/dL Albumin 3.1 L (3.5-5.0) g/dL Beta HCG, Quant 7862 mIU/mL Urine Color Urine Appearance Urine pH (5.0-9.0) Ur Specific [place] (1.005-1.025) Urine Protein (Neg-Trace) mg/dL Urine Glucose (UA) (Negative) mg/dL Urine Ketones (Negative) mg/dL Urine Blood (Negative) Urine Nitrite (Negative) Ur Leukocyte Esterase (Negative) Urine RBC (0-2) /HPF Urine WBC (0-5) /HPF Ur Squamous Epith Cells (0-2) /HPF Urine Bacteria (None Seen) Hyaline Casts (0-2) /LPF Urine Test (NEGATIVE) Independent Interpretation I performed an independent interpretation of an: Ultrasound Interpretation: My interpretation is in agreement with the radiologist's impression of this imaging study. EXAMINATION: Appendix ultrasound CLINICAL INFORMATION: Right-sided abdominal pain. Patient is 7 months .? COMPARISON: Full previous CT of the abdomen and pelvis October 2017? TECHNIQUE: Grayscale and color imaging of the right lower quadrant. The right kidney and right ovary were also imaged.? FINDINGS: The appendix is not seen by ultrasound. No fluid is seen in the right lower quadrant. The right kidney measures 12.9 x 4.8 x 6.2 cm. There are 3 small kidney stones largest measuring 3 mm in the midpole. There is mild right hydronephrosis. The visualized right proximal ureter is dilated. A right ureteral jet is seen in the bladder. The right ovary is normal-appearing. There are prominent right adnexal vessels. There is no fluid in the pelvis.? US/US appendix IMPRESSION: Appendix not seen by US. Small right renal stones. Mild right hydronephrosis and visualized proximal ureteral dilatation. Right ureteral jet seen in the bladder. Normal-appearing right ovary. Prominent right adnexal vessels. Dictated By: Priscila Mcguire MD Signed By: Electronically signed by Priscila Mcguire MD 08/27/22 1240 Critical Care Time Critical Care Time Critical Care Time: Yes Total Critical Care Time: 30 Attestation: I spent 30 minutes of Critical Care Time with this patient. This does not include time spent on separately reported billable procedures. Discharge Plan Discharge Clinical Impression: Patient Disposition: Xfer Acute Care Hospital Transfer Details: [facility] Instructions: (ED) Prescriptions: No Action amoxicillin-pot clavulanate 875-125 mg tablet 1 tab PO BID 7 Days Qty: 14 0RF Interventions: Acute Care Transfer Worksheet (ED) Last Done: 08/27/22 15:25 Discharge Date/Time: 08/27/22 15:25
[2022-08-27 11:10] LABS: MANUAL DIFF FLAG NO
[2022-08-27 11:12] LABS: Basophils Percent Auto 0.4 % (0-2); Eosinophils Absolute Auto 0.1 X10*3/uL (0.0-0.4); Eosinophils Percent Auto 1.7 % (0-4); Hematocrit 32.8 % (37.0-47.0); Hemoglobin 11.5 g/dl (12.0-16.0); Imm Gran Abs Auto 0.04 X10*3/uL (0.00-0.03); Imm Gran Pct Auto 0.5 % (0.0-0.4); Lymphocytes Absolute Auto 1.8 X10*3/uL (1.2-4.9); Lymphocytes Percent Auto 21.4 % (20-40); Mean Corpuscular HGB Conc 35.1 g/dl (31.0-35.0); Mean Platelet Volume 9.6 fL (9.4-12.3); Monocytes Absolute Auto 0.7 X10*3/uL (0.1-1.2); Monocytes Percent Auto 8.3 % (2-11); Neutrophils Absolute Auto 5.7 x10*3/uL (2.0-8.3); Neutrophils Percent Auto 67.7 % (45-73); Platelet Count 145 X10*3/uL (160-400); Red Blood Count 3.49 X10*6/uL (4.20-5.50); Red Cell Distribution Width 12.5 % (11.0-16.0); White Blood Count 8.5 X10*3/uL (4.8-10.8)
[2022-08-27 11:32] LABS: Alanine Aminotransferase 13 U/L (0-31); Albumin Level 3.1 g/dL (3.5-5.0); Alkaline Phosphatase 38 U/L (39-117); Anion Gap 9 (12-20); Aspartate Amino Transferase 16 U/L (5-31); Bilirubin Total 0.4 mg/dL (0.0-1.0); Blood Urea Nitrogen 10 mg/dL (9-16); C Reactive Protein < 0.04 mg/dL (< or = 0.50); Calcium 8.4 mg/dL (8.4-10.2); Carbon Dioxide 21 mmol/L (22-29); Chloride 111 mmol/L (96-108); Creatinine Clr Calc Pharmacy 144.2; Estimated Glomerular Filt Rate > 60; Glucose Random 96 mg/dL (60-115); Potassium 3.9 mmol/L (3.3-5.1); Sodium 137 mmol/L (135-145); Total Protein 6.1 g/dL (6.5-8.0)
[2022-08-27 11:37] LABS: HCG Quantitative 7862 mIU/mL
[2022-08-27 11:49] LABS: Erythrocyte Sedimentation Rate 24 MM/HR (0-20)
--- NOTE | 2022-08-27 12:57 | PM.OBCN ---
OB Consult Note - [facility] Data Service Date: 08/27/22 Primary Care Provider: Unknown Physician Narrative I was consulted at 12:58 regarding Jyoti Adams who is a 37 year old female ati at 27w3d gestation presented to the emergency room with right sided abdominal pain radiating to her right flank and mid-lower back, no associated vaginal bleeding, dysuria, chest pain, fever or chills , no leakage of fluid or bleeding. Good movement OB PMFSH Social History Social History Alcohol intake: former Substance Use Type: Marijuana Advance Directives: No Advance Directives Information Provided: No Meds Allergies Allergy/AdvReac Type Severity Reaction Status Date / Time No Known Allergies Allergy Verified 08/27/22 09:13 OB Physical Exam Physical Exam Additional Comments: Reported by FILIPPO Garcia as the following: Tenderness to palpation present in the LLQ (palpation of the LLQ elicits pain at the RLQ), in the RLQ and in the RUQ, normal bowel sounds heart rate in 134 OB Consult Results Labs 08/27/22 11:05 08/27/22 11:05 Labs: Short CBC 08/27/22 Range/Units 11:05 WBC 8.5 (4.8-10.8) X10*3/uL Hgb 11.5 L (12.0-16.0) g/dl Hct 32.8 L (37.0-47.0) % Plt Count 145 L (160-400) X10*3/uL BMP 08/27/22 11:05 Sodium 137 Potassium 3.9 Chloride 111 H Carbon Dioxide 21 L BUN 10 Creatinine 0.56 Calcium 8.4 Liver Function 08/27/22 Range/Units 11:05 Total Bilirubin 0.4 (0.0-1.0) mg/dL AST 16 (5-31) U/L ALT 13 (0-31) U/L Alkaline Phosphatase 38 L (39-117) U/L Albumin 3.1 L (3.5-5.0) g/dL Urine 08/27/22 08/27/22 Range/Units 09:26 09:26 Urine Color Yellow Urine Appearance Clear Urine pH 7.5 (5.0-9.0) Ur Specific [place] 1.020 (1.005-1.025) Urine Protein 30 (1+) H (Neg-Trace) mg/dL Urine Glucose (UA) Negative (Negative) mg/dL Urine Test POSITIVE H (NEGATIVE) OB - CN: A/P Assessment and Plan (1) : Status: Acute Assessment and Plan: Recommended to FILIPPO Garcia the following: Transfer to [facility] to rule out labor and further management. I spent a total of 20 minute reviewing the chart, communicating to the emergency room provider and documenting in the medical record Time Spent With Patient Time: Total time managing care of this patient today ____ minutes.
[2022-08-27 14:53] VITALS: BP 110/49; PULSE 70; RESP 12; TEMP 36.6; O2SAT 98
== END 2022-08-27 15:25 | disposition short-term general hospital (02) ==
PROVIDERS: Physician Assistant Medical; Emergency Provider Emergency Medicine
DX: O26.892 Other specified pregnancy related conditions, second trimester (principal); Z3A.27 27 weeks gestation of pregnancy; R10.31 Right lower quadrant pain; M54.50 Low back pain, unspecified
CPT/HCPCS: 36415; 76705; 80053; 81001; 81025; 84702; 85025; 85652; 86140; 99285